=== PATIENT | male | born 1950 | race Caucasian/White ===

== ENCOUNTER 2018-10-22 19:25 | Inpatient (IN) | payer MEDICARE, OTHER ==
[2018-10-22] MEDS ORDERED: Ketorolac 30 MG/ML SDV IVPUSH ONE (19:54)
[2018-10-22] MEDS ORDERED: Lactated Ringers 1,000 ML IV SCH (20:00)
[2018-10-22] MEDS ORDERED: Ondansetron 4 MG/2 ML SDV IVPUSH ONE (20:02)
--- NOTE | 2018-10-22 20:03 | EDM.PDOC ---
ED HPI GENERAL MEDICAL PROBLEM - General Chief Complaint: Genitourinary Problem Stated Complaint: KIDNEY STONE Time Seen by Provider: 10/22/18 19:54 Source of Information: Reports: Patient, Family, RN Notes Reviewed History Limitations: Reports: No Limitations - History of Present Illness INITIAL COMMENTS - FREE TEXT/NARRATIVE: 68-year-old gentleman presents to the emergency department today complaint of right flank pain, he states, on suddenly this morning is very intense and then will relax does have a history of nephrolithiasis 15 years ago, complains of nausea as well right flank Pain Score (Numeric/FACES): 7 - Related Data Allergies Allergy/AdvReac Type Severity Reaction Status Date / Time codeine Allergy Vomiting Verified 10/22/18 19:40 Home Meds: Home Meds Canagliflozin [Invokana] 100 mg PO DAILY 10/22/18 [History] Finasteride 5 mg PO DAILY 10/22/18 [History] Gabapentin [Neurontin] 600 mg PO TID 10/22/18 [History] Insulin Detemir [Levemir] 18 units SQ DAILY 10/22/18 [History] Lisinopril 20 mg PO DAILY 10/22/18 [History] Simvastatin 20 mg PO DAILY 10/22/18 [History] Terazosin HCl [Terazosin] 2 mg PO BEDTIME 10/22/18 [History] metFORMIN HCl [Glucophage] 1,000 mg PO BID 10/22/18 [History] Past Medical History Cardiovascular History: Reports: High Cholesterol, Hypertension Genitourinary History: Reports: Renal Calculus Endocrine/Metabolic History: Reports: Diabetes, Type II - Past Surgical History Musculoskeletal Surgical History: Reports: Amputation, Knee Replacement, Shoulder Surgery Social & Family History - Tobacco Use Smoking Status *Q: Never Smoker - Caffeine Use Caffeine Use: Reports: Tea - Recreational Drug Use Recreational Drug Use: No ED ROS GENERAL - Review of Systems Review Of Systems: See Below Constitutional: Reports: No Symptoms HEENT: Reports: No Symptoms Respiratory: Reports: No Symptoms Cardiovascular: Reports: No Symptoms GI/Abdominal: Reports: Abdominal Pain, Nausea. Denies: Vomiting : Reports: Flank Pain ED EXAM, RENAL/ - Physical Exam Exam: See Below Exam Limited By: No Limitations General Appearance: Alert, Moderate Distress Respiratory/Chest: No Respiratory Distress, Lungs Clear, Normal Breath Sounds, No Accessory Muscle Use, Chest Non-Tender Cardiovascular: Regular Rate, Rhythm, No Murmur GI/Abdominal: Soft, Non-Tender Back Exam: Normal Inspection, Full Range of Motion, CVA Tenderness (R). No: CVA Tenderness (L) Course - Vital Signs Last Recorded V/S: Last Vital Signs Temp 97.2 F 10/22/18 19:44 Pulse 65 10/22/18 19:44 Resp 19 10/22/18 19:44 BP 144/63 H 10/22/18 19:44 Pulse Ox 97 10/22/18 19:44 - Orders/Labs/Meds Orders: Active Orders 24 hr Category Date Time Status Gastric Occult/pH Collection D [RC] ASDIRECTED Care 10/22/18 22:45 Active UA W/MICROSCOPIC [URIN] Urgent Lab 10/22/18 19:54 Ordered Lactated Ringers [Ringers, Lactated] 1,000 ml Med 10/22/18 20:00 Active IV ASDIRECTED Medication Orders Lactated Ringer's (Ringers, Lactated) 1,000 mls @ 999 mls/hr IV ASDIRECTED RICARDO Last Admin: 10/22/18 20:09 Dose: 999 mls/hr Labs: Laboratory Tests 10/22/18 10/22/18 Range/Units 19:59 19:59 WBC 7.0 (4.5-11.0) K/uL RBC 4.56 (4.30-5.90) M/uL Hgb 14.0 (12.0-15.0) g/dL Hct 43.0 (40.0-54.0) % MCV 94 (80-98) fL MCH 31 (27-31) pg MCHC 33 (32-36) % Plt Count 214 (150-400) K/uL Neut % (Auto) 63 (36-66) % Lymph % (Auto) 27 (24-44) % [place] % (Auto) 6 (2-6) % Eos % (Auto) 4 (2-4) % Baso % (Auto) 0 (0-1) % Sodium 142 (140-148) mmol/L Potassium 4.5 (3.6-5.2) mmol/L Chloride 107 (100-108) mmol/L Carbon Dioxide 25 (21-32) mmol/L Anion Gap 10.0 (5.0-14.0) mmol/L BUN 29 H (7-18) mg/dL Creatinine 1.2 (0.8-1.3) mg/dL Est Cr Clr Drug Dosing 57.79 mL/min Estimated GFR (MDRD) > 60 (>60) Glucose 119 H (74-106) mg/dL Calcium 9.1 (8.5-10.1) mg/dL Total Bilirubin 0.3 (0.2-1.0) mg/dL AST 14 L (15-37) U/L ALT 26 (12-78) U/L Alkaline Phosphatase 48 (46-116) U/L Troponin I < 0.017 (0.000-0.056) ng/mL Total Protein 6.6 (6.4-8.2) g/dL Albumin 3.5 (3.4-5.0) g/dL Globulin 3.1 (2.3-3.5) g/dL Albumin/Globulin Ratio 1.1 L (1.2-2.2) Meds: Medications Generic Name Dose Route Start Last Admin Trade Name Thien PRN Reason Stop Dose Admin Lactated Ringer's 1,000 mls @ 999 mls/hr 10/22/18 20:00 10/22/18 20:09 Ringers, Lactated IV 999 mls/hr ASDIRECTED RICARDO Administration Discontinued Medications Generic Name Dose Route Start Last Admin Trade Name Thien PRN Reason Stop Dose Admin Cyclobenzaprine HCl 10 mg 10/22/18 22:42 10/22/18 22:54 Flexeril PO 10/22/18 22:43 10 mg ONETIME ONE Administration Fentanyl 100 mcg 10/22/18 20:23 10/22/18 20:26 Sublimaze IVPUSH 10/22/18 20:24 100 mcg ONETIME ONE Administration Fentanyl 100 mcg 10/22/18 22:07 10/22/18 22:14 Sublimaze IVPUSH 10/22/18 22:08 100 mcg ONETIME ONE Administration Hydromorphone HCl 1 mg 10/22/18 22:36 10/22/18 22:40 Dilaudid IVPUSH 10/22/18 22:37 1 mg ONETIME ONE Administration Ketamine HCl 10 mg 10/22/18 22:08 10/22/18 22:16 Ketalar IV 10/22/18 22:09 10 mg ONETIME ONE Administration Ketorolac Tromethamine 30 mg 10/22/18 19:54 10/22/18 19:58 Toradol IVPUSH 10/22/18 19:55 30 mg ONETIME ONE Administration Ondansetron HCl 4 mg 10/22/18 20:02 10/22/18 20:07 Zofran IVPUSH 10/22/18 20:03 4 mg ONETIME ONE Administration Prochlorperazine Edisylate 5 mg 10/22/18 22:44 10/22/18 22:54 Compazine IVPUSH 10/22/18 22:45 5 mg ONETIME ONE Administration Departure - Departure Time of Disposition: 23:39 ( since ) Disposition: Admitted As Inpatient 67 Condition: Fair Clinical Impression: Right flank pain - Discharge Information Referrals: PCP,None [Primary Care Provider] - Forms: ED Department Discharge - My Orders Last 24 Hours: My Active Orders 10/22/18 19:54 UA W/MICROSCOPIC [URIN] Urgent 10/22/18 20:00 Lactated Ringers [Ringers, Lactated] 1,000 ml IV ASDIRECTED 10/22/18 22:45 Gastric Occult/pH Collection D [RC] ASDIRECTED - Assessment/Plan Last 24 Hours: My Active Orders 10/22/18 19:54 UA W/MICROSCOPIC [URIN] Urgent 10/22/18 20:00 Lactated Ringers [Ringers, Lactated] 1,000 ml IV ASDIRECTED 10/22/18 22:45 Gastric Occult/pH Collection D [RC] ASDIRECTED Plan: Assessment Acuity = acute Site and laterality = right flank pain Etiology = unclear etiology Manifestations = nausea and vomiting Location of injury = Home Lab values = CBC, CMP unremarkable, troponin is negative CT scan of the abdomen shows no acute process gastric emesis was positive for occult blood Plan Discussed case with hospitalist on-call at 2300 recommended admission at that time This note was dictated using [employer] voice recognition software please call with any questions on syntax or grammar.
[2018-10-22] MEDS ORDERED: fentaNYL 100 MCG/2 ML SDV IVPUSH ONE ×2 (20:23→22:07)
--- NOTE | 2018-10-22 22:03 | CRLCT ---
Indication: Right flank pain Technique: Nonenhanced axial CT imaging through the abdomen and pelvis. Sagittal and coronal reconstructions are provided. Comparison: None Findings: The included lung bases are clear. There is unremarkable noncontrast appearance of the liver, spleen, pancreas, or adrenal glands. The gallbladder is surgically absent. There is normal renal parenchymal attenuation. A 2.9 cm cyst is noted in the left kidney. There is no hydronephrosis. No renal stones are demonstrated. The stomach and duodenum are unremarkable. There are no abnormally dilated small bowel loops. The appendix is not visualized. The colon is unremarkable. There is no abdominal lymphadenopathy. No significant inflammatory changes are demonstrated in the mesentery. There is no significant free intraperitoneal fluid. There is no pneumoperitoneum. There is normal caliber of the abdominal aorta. Multilevel degenerative changes are noted in the lumbar spine. Impression: No evidence of nephrolithiasis or urinary obstruction. Please note that all CT scans at this facility use dose modulation, iterative reconstruction, and/or weight-based dosing when appropriate to reduce radiation dose to as low as reasonably achievable. Dictated by Vanessa Lopez MD @ Oct 22 2018 9:55PM Signed by Dr. Vanessa Lopez @ Oct 22 2018 10:02PM
[2018-10-22] MEDS ORDERED: Ketamine 500 MG/5 ML MDV IV ONE (22:08)
[2018-10-22] MEDS ORDERED: HYDROmorphone 0.5 MG/0.5 ML Syringe IVPUSH ONE (22:36)
[2018-10-22] MEDS ORDERED: Cyclobenzaprine 10 MG Tab PO ONE (22:42)
[2018-10-22] MEDS ORDERED: Prochlorperazine 10 MG/2 ML SDV IVPUSH ONE (22:44)
[2018-10-22] MEDS ORDERED: Sodium Chloride 0.9% 10 ML Syringe FLUSH PRN (23:47)
[2018-10-22] MEDS ORDERED: Ondansetron 4 MG/2 ML SDV IVPUSH PRN (23:51)
[2018-10-22] MEDS ORDERED: HYDROmorphone 0.5 MG/0.5 ML Syringe IVPUSH PRN (23:51)
--- NOTE | 2018-10-22 23:57 | PCM.HP ---
H&P History of Present Illness - General Date of Service: 10/22/18 Admit Problem/Dx: Admission Diagnosis/Problem Admission Diagnosis/Problem Flank pain Source of Information: Patient History Limitations: Reports: No Limitations - History of Present Illness Initial Comments - Free Text/Narative: Please see ER note for details right flank Pain Score (Numeric/FACES): 7 - Related Data Allergies/Adverse Reactions: Allergies Allergy/AdvReac Type Severity Reaction Status Date / Time codeine Allergy Vomiting Verified 10/22/18 19:40 Home Medications: Home Meds Canagliflozin [Invokana] 100 mg PO DAILY 10/22/18 [History] Finasteride 5 mg PO DAILY 10/22/18 [History] Gabapentin [Neurontin] 600 mg PO TID 10/22/18 [History] Insulin Detemir [Levemir] 18 units SQ DAILY 10/22/18 [History] Lisinopril 20 mg PO DAILY 10/22/18 [History] Simvastatin 20 mg PO DAILY 10/22/18 [History] Terazosin HCl [Terazosin] 2 mg PO BEDTIME 10/22/18 [History] metFORMIN HCl [Glucophage] 1,000 mg PO BID 10/22/18 [History] Past Medical History Cardiovascular History: Reports: High Cholesterol, Hypertension Genitourinary History: Reports: Renal Calculus Endocrine/Metabolic History: Reports: Diabetes, Type II - Past Surgical History Musculoskeletal Surgical History: Reports: Amputation, Knee Replacement, Shoulder Surgery Social & Family History - Tobacco Use Smoking Status *Q: Never Smoker - Caffeine Use Caffeine Use: Reports: Tea - Recreational Drug Use Recreational Drug Use: No H&P Review of Systems - Review of Systems: Review Of Systems: See Below Free Text/Narrative: Please see ER note for review of systems Exam - Exam Exam: See Below - Vital Signs Vital Signs: Last Vital Signs Temp 97.2 F 10/22/18 19:44 Pulse 65 10/22/18 19:44 Resp 19 10/22/18 19:44 BP 144/63 H 10/22/18 19:44 Pulse Ox 97 10/22/18 19:44 Weight: 102.5 kg - Exam Physical Exam Comments:: Please see ER note for physical exam - Patient Data Lab Results Last 24 hrs: Laboratory Results - last 24 hr 10/22/18 10/22/18 Range/Units 19:59 19:59 WBC 7.0 (4.5-11.0) K/uL RBC 4.56 (4.30-5.90) M/uL Hgb 14.0 (12.0-15.0) g/dL Hct 43.0 (40.0-54.0) % MCV 94 (80-98) fL MCH 31 (27-31) pg MCHC 33 (32-36) % Plt Count 214 (150-400) K/uL Neut % (Auto) 63 (36-66) % Lymph % (Auto) 27 (24-44) % [place] % (Auto) 6 (2-6) % Eos % (Auto) 4 (2-4) % Baso % (Auto) 0 (0-1) % Sodium 142 (140-148) mmol/L Potassium 4.5 (3.6-5.2) mmol/L Chloride 107 (100-108) mmol/L Carbon Dioxide 25 (21-32) mmol/L Anion Gap 10.0 (5.0-14.0) mmol/L BUN 29 H (7-18) mg/dL Creatinine 1.2 (0.8-1.3) mg/dL Est Cr Clr Drug Dosing 57.79 mL/min Estimated GFR (MDRD) > 60 (>60) Glucose 119 H (74-106) mg/dL Calcium 9.1 (8.5-10.1) mg/dL Total Bilirubin 0.3 (0.2-1.0) mg/dL AST 14 L (15-37) U/L ALT 26 (12-78) U/L Alkaline Phosphatase 48 (46-116) U/L Troponin I < 0.017 (0.000-0.056) ng/mL Total Protein 6.6 (6.4-8.2) g/dL Albumin 3.5 (3.4-5.0) g/dL Globulin 3.1 (2.3-3.5) g/dL Albumin/Globulin Ratio 1.1 L (1.2-2.2) Result Diagrams: 10/22/18 19:59 10/22/18 19:59 Kofi Results Last 24 hrs: Microbiology 10/22/18 23:24 Gastric Occult Blood - Final Gastric Aspirate - Problem List (1) Right flank pain SNOMED Code(s): 566546446 ICD Code: R10.9 - UNSPECIFIED ABDOMINAL PAIN Status: Acute Priority: High Current Visit: Yes (2) Diabetes mellitus type 2, insulin dependent SNOMED Code(s): 659209619 ICD Code: E11.9 - TYPE 2 DIABETES MELLITUS WITHOUT COMPLICATIONS; Z79.4 - COST SPECIALIST (CURRENT) USE OF INSULIN Status: Acute Current Visit: Yes (3) Hypertension SNOMED Code(s): 37886384 ICD Code: I10 - ESSENTIAL (PRIMARY) HYPERTENSION Status: Acute Current Visit: Yes Qualifiers: Hypertension type: essential hypertension Qualified Code(s): I10 - Essential (primary) hypertension (4) Upper GI bleed SNOMED Code(s): 57995984 ICD Code: K92.2 - GASTROINTESTINAL HEMORRHAGE, UNSPECIFIED Status: Acute Priority: High Current Visit: Yes (5) Dyslipidemia SNOMED Code(s): 758470016 ICD Code: E78.5 - HYPERLIPIDEMIA, UNSPECIFIED Status: Acute Priority: Low Current Visit: Yes Problem List Initiated/Reviewed/Updated: Yes Orders Last 24hrs: Active Orders 24 hr Category Date Time Status Patient Status [ADT] Routine ADT 10/22/18 23:47 Ordered Gastric Occult/pH Collection D [RC] ASDIRECTED Care 10/22/18 22:45 Active Height and Weight [RC] DAILY Care 10/22/18 23:47 Ordered Intake and Output [RC] QSHIFT Care 10/22/18 23:48 Ordered Oxygen Therapy [RC] PRN Care 10/22/18 23:47 Ordered Peripheral IV Care [RC] . DIRECTED Care 10/22/18 23:49 Ordered Pulse Oximetry [RC] CONTINUOUS Care 10/22/18 23:48 Ordered Up With Assistance [RC] ASDIRECTED Care 10/22/18 23:47 Ordered VTE/DVT Education [RC] Per Unit Routine Care 10/22/18 23:47 Ordered Vital Signs [RC] Q4H Care 10/22/18 23:47 Ordered Nothing per Oral Now Diet [DIET] Diet 10/22/18 Breakfast Ordered CBC WITH AUTO DIFF [HEME] AM Lab 10/23/18 05:11 Ordered COMPREHENSIVE METABOLIC PN,CMP [CHEM] AM Lab 10/23/18 05:11 Ordered UA W/MICROSCOPIC [URIN] Urgent Lab 10/22/18 19:54 Ordered Canagliflozin [Invokana] Med 10/23/18 09:00 Ordered 100 mg PO DAILY Finasteride [Proscar] Med 10/23/18 09:00 Ordered 5 mg PO DAILY Gabapentin [Neurontin] Med 10/23/18 09:00 Ordered 600 mg PO TID HYDROmorphone [Dilaudid] Med 10/22/18 23:51 Ordered 0.5 mg IVPUSH Q4H PRN Insulin Detemir [Levemir] Med 10/23/18 09:00 Ordered 18 units SQ DAILY Lactated Ringers [Ringers, Lactated] 1,000 ml Med 10/22/18 20:00 Active IV ASDIRECTED Lisinopril [Prinivil] Med 10/23/18 09:00 Ordered 20 mg PO DAILY Ondansetron [Zofran] Med 10/22/18 23:51 Ordered 4 mg IVPUSH Q8H PRN Pantoprazole [ProTONIX IV] Med 10/22/18 23:45 Ordered 40 mg IV Q12H Simvastatin [Zocor] Med 10/23/18 09:00 Ordered 20 mg PO DAILY Sodium Chloride 0.9% @ 125 MLS/HR (1000ml) Med 10/22/18 23:45 Ordered Sodium Chloride 0.9% [Normal Saline] 1,000 ml IV ASDIRECTED Sodium Chloride 0.9% [Saline Flush] Med 10/22/18 23:47 Ordered 10 ml FLUSH ASDIRECTED PRN Terazosin HCl [Terazosin] Med 10/23/18 21:00 Ordered 2 mg PO BEDTIME metFORMIN HCl [Glucophage] Med 10/23/18 09:00 Ordered 1,000 mg PO BID Nasogastric Orogastric Tube Insertion [OM.PC] Urgent Oth 10/22/18 23:48 Ordered Peripheral IV Insertion Adult [OM.PC] Routine Oth 10/22/18 23:47 Ordered Resuscitation Status Routine Resus Stat 10/22/18 23:47 Ordered Medication Orders Finasteride (Proscar) 5 mg PO DAILY RICARDO Gabapentin (Neurontin) 600 mg PO TID RICARDO Hydromorphone HCl (Dilaudid) 0.5 mg IVPUSH Q4H PRN PRN Reason: Pain Lactated Ringer's (Ringers, Lactated) 1,000 mls @ 999 mls/hr IV ASDIRECTED RICARDO Last Admin: 10/22/18 20:09 Dose: 999 mls/hr Sodium Chloride (Normal Saline) 1,000 mls @ 125 mls/hr IV ASDIRECTED [facility] Lisinopril (Prinivil) 20 mg PO DAILY RICARDO Non-Formulary Medication (Canagliflozin [Invokana]) 100 mg PO DAILY RICARDO Non-Formulary Medication (Insulin Detemir [Levemir]) 18 units SQ DAILY RICARDO Non-Formulary Medication (Metformin Hcl [Glucophage]) 1,000 mg PO BID RICARDO Non-Formulary Medication (Terazosin Hcl [Terazosin]) 2 mg PO BEDTIME RICARDO Ondansetron HCl (Zofran) 4 mg IVPUSH Q8H PRN PRN Reason: Nausea/Vomiting Pantoprazole Sodium (Protonix Iv) 40 mg IV Q12H RICARDO Simvastatin (Zocor) 20 mg PO DAILY RICARDO Sodium Chloride (Saline Flush) 10 ml FLUSH ASDIRECTED PRN PRN Reason: Keep Vein Open Assessment/Plan Comment:: ASSESSMENT AND PLAN Right flank pain, unclear etiology at this time continue pain control fluids anti-medics Positive gastric contents from emesis concern for upper GI bleed, nothing by mouth consult surgery in the morning discussed possibility of EGD Diabetes mellitus type 2, continue home medications of insulin and metformin Hypertension Dyslipidemia MAINTENANCE ISSUES -DVT prophylaxis; none at this time because of the GI bleed -GI prophylaxis; started on Protonix 40 mg twice a day -Flores catheter; not indicated at this time -Nutrition; nothing by mouth until EGD -Nicotine dependence; has not required CODE STATUS-FULL CODE ADMISSION STATUS-patient will be admitted to inpatient status, expect at least a 2 night hospital stay for evaluation and management of problems as outlined above. At the time of this admission I do not reasonably expected evaluation and management of this problem will require more than a 96 hour hospital stay. DISPOSITION - anticipate discharge to home after the hospital stay. PRIMARY CARE PROVIDER - unknown from [place]
[2018-10-23] MEDS ORDERED: Pantoprazole 40 MG Vial IV SCH
[2018-10-23] MEDS: Sodium Chloride 0.9% 1,000 ML IV SCH ×2 (00:18→08:18)
[2018-10-23] MEDS ORDERED: metFORMIN 500 MG Tab PO SCH (08:00)
[2018-10-23] MEDS ORDERED: Simvastatin 20 MG Tab PO SCH (09:00)
[2018-10-23] MEDS ORDERED: Finasteride 5 MG Tab PO SCH (09:00)
[2018-10-23] MEDS ORDERED: Lisinopril 20 MG Tab PO SCH (09:00)
[2018-10-23] MEDS ORDERED: Gabapentin 300 MG Cap PO SCH (09:00)
[2018-10-23] MEDS ORDERED: Insulin Glargine,Human Rec. Analog 100 Units/ML 3 ML Pen SUBCUT SCH (09:00)
[2018-10-23] MEDS ORDERED: EPINEPHrine 1 MG/ML SDV ONE (09:47)
[2018-10-23] MEDS ORDERED: Midazolam 1 MG/ML 2 ML SDV ONE (09:58)
[2018-10-23] MEDS ORDERED: Propofol 200 MG/20 ML SDV ONE (09:58)
[2018-10-23] MEDS ORDERED: fentaNYL 100 MCG/2 ML SDV ONE (09:58)
--- NOTE | 2018-10-23 11:43 | PCM.DCSUM1 ---
Discharge Summary - Hospital Course Brief History: 68-year-old male with history of insulin-dependent diabetes mellitus, previous nephrolithiasis who presented with acute right lower back pain. he had an episode of hematemesis in the emergency room as well.He was admitted for observation and pain control as well as expedited workup of hematemesis. Diagnosis: Stroke: No - Discharge Data Discharge Date: 10/23/18 Discharge Disposition: Home, Self-Care 01 Condition: Good - Discharge Diagnosis/Problem(s) (1) Acute low back pain SNOMED Code(s): 921959555 ICD Code: M54.5 - LOW BACK PAIN Status: Acute Current Visit: Yes Qualifiers: Back pain laterality: right Sciatica presence: without sciatica Qualified Code(s): M54.5 - Low back pain (2) Hematemesis SNOMED Code(s): 9489488 ICD Code: K92.0 - HEMATEMESIS Status: Acute Current Visit: Yes Qualifiers: Nausea presence: with nausea Qualified Code(s): K92.0 - Hematemesis (3) Diabetes mellitus type 2, insulin dependent SNOMED Code(s): 224492252 ICD Code: E11.9 - TYPE 2 DIABETES MELLITUS WITHOUT COMPLICATIONS; Z79.4 - FILLING LAYER UP (CURRENT) USE OF INSULIN Status: Chronic Current Visit: Yes - Patient Summary/Data Hospital Course: Bill presented to the emergency room with acute right lower back pain. There is no preceding injury. Laboratory studies were unremarkable. CT scan of the abdomen and pelvis was unremarkable for cause of his severe pain. He required multiple doses of narcotic pain medications as well as a muscle relaxer. While he was in the emergency room he had an episode of hematemesis. He was admitted to the hospital for observation, pain control and expedited workup of the hematemesis. Overnight following admission there were no acute issues. His pain was well-controlled and he did not require any as needed medications following hospital admission. An NG tube was placed in the emergency room after his episode of hematemesis but he did not have further episodes overnight. Minimal drainage from the stomach was obtained overnight. The morning after admission he feels well with very mild residual pain in the right lower back. No physical limitations are present. With the episode of hematemesis we did complete an EGD which showed very mild antral gastritis but no evidence for bleeding and no retained blood. Patient feels well at this time and would like to go home. I do believe he is safe for outpatient management. He does have a prescription for muscle relaxers that he will fill if he has difficulty with his back. He will follow-up if symptoms do not continue to get better or if they get worse. - Patient Instructions Diet: Regular Diet as Tolerated Activity: As Tolerated, No Strenuous Activities Showering/Bathing: May Shower Notify Provider of: Increased Pain, Nausea and/or Vomiting - Discharge Plan *PRESCRIPTION DRUG MONITORING PROGRAM REVIEWED*: Not Applicable *COPY OF PRESCRIPTION DRUG MONITORING REPORT IN PATIENT UBALDO: Not Applicable Home Medications: Home Meds Canagliflozin [Invokana] 100 mg PO DAILY 10/22/18 [History] Finasteride 5 mg PO DAILY 10/22/18 [History] Gabapentin [Neurontin] 600 mg PO TID 10/22/18 [History] Insulin Detemir [Levemir] 18 units SQ DAILY 10/22/18 [History] Lisinopril 20 mg PO DAILY 10/22/18 [History] Simvastatin 20 mg PO DAILY 10/22/18 [History] Terazosin HCl [Terazosin] 2 mg PO BEDTIME 10/22/18 [History] metFORMIN HCl [Glucophage] 1,000 mg PO BID 10/22/18 [History] Oxygen Therapy Mode: Room Air Patient Handouts: Acute Back Pain, Adult Referrals: PCP,None [Primary Care Provider] - (f/u if symptoms do not continue to get better ) - Discharge Summary/Plan Comment DC Time >30 min.: No - Patient Data Vitals - Most Recent: Last Vital Signs Temp 35.9 C 10/23/18 10:40 Pulse 55 L 10/23/18 10:45 Resp 16 10/23/18 10:45 BP 104/63 10/23/18 10:45 Pulse Ox 99 10/23/18 10:45 Weight - Most Recent: 102.058 kg I&O - Last 24 hours: Intake & Output 10/22/18 10/23/18 10/23/18 22:59 06:59 14:59 Intake Total 634 Output Total 1200 Balance -566 Lab Results - Last 24 hrs: Laboratory Results - last 24 hr 10/22/18 10/22/18 10/23/18 Range/Units 19:59 19:59 00:08 WBC 7.0 (4.5-11.0) K/uL RBC 4.56 (4.30-5.90) M/uL Hgb 14.0 (12.0-15.0) g/dL Hct 43.0 (40.0-54.0) % MCV 94 (80-98) fL MCH 31 (27-31) pg MCHC 33 (32-36) % Plt Count 214 (150-400) K/uL Neut % (Auto) 63 (36-66) % Lymph % (Auto) 27 (24-44) % Powell % (Auto) 6 (2-6) % Eos % (Auto) 4 (2-4) % Baso % (Auto) 0 (0-1) % Sodium 142 (140-148) mmol/L Potassium 4.5 (3.6-5.2) mmol/L Chloride 107 (100-108) mmol/L Carbon Dioxide 25 (21-32) mmol/L Anion Gap 10.0 (5.0-14.0) mmol/L BUN 29 H (7-18) mg/dL Creatinine 1.2 (0.8-1.3) mg/dL Est Cr Clr Drug Dosing 57.79 mL/min Estimated GFR (MDRD) > 60 (>60) Glucose 119 H (74-106) mg/dL Calcium 9.1 (8.5-10.1) mg/dL Total Bilirubin 0.3 (0.2-1.0) mg/dL AST 14 L (15-37) U/L ALT 26 (12-78) U/L Alkaline Phosphatase 48 (46-116) U/L Troponin I < 0.017 (0.000-0.056) ng/mL Total Protein 6.6 (6.4-8.2) g/dL Albumin 3.5 (3.4-5.0) g/dL Globulin 3.1 (2.3-3.5) g/dL Albumin/Globulin Ratio 1.1 L (1.2-2.2) Urine Color Yellow Urine Appearance Clear Urine pH 5.0 (4.5-8.0) Ur Specific Vernon 1.020 (1.008-1.030) Urine Protein Negative (NEGATIVE) mg/dL Urine Glucose (UA) >1000 H (NEGATIVE) mg/dL Urine Ketones Negative (NEGATIVE) mg/dL Urine Occult Blood Negative (NEGATIVE) Urine Nitrite Negative (NEGAITVE) Urine Bilirubin Negative (NEGATIVE) Urine Urobilinogen Normal (NORMAL) mg/dL Ur Leukocyte Esterase Negative (NEGATIVE) Urine RBC 0-5 (0-5) Urine WBC 0-5 (0-5) Ur Epithelial Cells Rare Amorphous Sediment Not seen Urine Bacteria Rare Urine Mucus Not seen 10/23/18 10/23/18 10/23/18 Range/Units 03:00 04:40 04:40 WBC 7.5 (4.5-11.0) K/uL RBC 4.21 L (4.30-5.90) M/uL Hgb 13.2 12.9 (12.0-15.0) g/dL Hct 40.1 (40.0-54.0) % MCV 95 (80-98) fL MCH 31 (27-31) pg MCHC 32 (32-36) % Plt Count 190 (150-400) K/uL Neut % (Auto) 79 H (36-66) % Lymph % (Auto) 15 L (24-44) % Powell % (Auto) 5 (2-6) % Eos % (Auto) 0 L (2-4) % Baso % (Auto) 0 (0-1) % Sodium 142 (140-148) mmol/L Potassium 4.9 (3.6-5.2) mmol/L Chloride 108 (100-108) mmol/L Carbon Dioxide 28 (21-32) mmol/L Anion Gap 6.4 (5.0-14.0) mmol/L BUN 30 H (7-18) mg/dL Creatinine 1.2 (0.8-1.3) mg/dL Est Cr Clr Drug Dosing TNP mL/min Estimated GFR (MDRD) > 60 (>60) Glucose 123 H (74-106) mg/dL Calcium 8.2 L (8.5-10.1) mg/dL Total Bilirubin 0.3 (0.2-1.0) mg/dL AST 20 (15-37) U/L ALT 32 (12-78) U/L Alkaline Phosphatase 41 L (46-116) U/L Troponin I (0.000-0.056) ng/mL Total Protein 6.0 L (6.4-8.2) g/dL Albumin 3.1 L (3.4-5.0) g/dL Globulin 2.9 (2.3-3.5) g/dL Albumin/Globulin Ratio 1.1 L (1.2-2.2) Urine Color Urine Appearance Urine pH (4.5-8.0) Ur Specific Vernon (1.008-1.030) Urine Protein (NEGATIVE) mg/dL Urine Glucose (UA) (NEGATIVE) mg/dL Urine Ketones (NEGATIVE) mg/dL Urine Occult Blood (NEGATIVE) Urine Nitrite (NEGAITVE) Urine Bilirubin (NEGATIVE) Urine Urobilinogen (NORMAL) mg/dL Ur Leukocyte Esterase (NEGATIVE) Urine RBC (0-5) Urine WBC (0-5) Ur Epithelial Cells Amorphous Sediment Urine Bacteria Urine Mucus BRADLY Results - Last 24 hrs: Microbiology 10/22/18 23:24 Gastric Occult Blood - Final Gastric Aspirate Med Orders - Current: Current Medications Finasteride (Proscar) 5 mg PO DAILY [facility] Gabapentin (Neurontin) 600 mg PO TID [facility] Hydromorphone HCl (Dilaudid) 0.5 mg IVPUSH Q4H PRN PRN Reason: Pain Lactated Ringer's (Ringers, Lactated) 1,000 mls @ 999 mls/hr IV ASDIRECTED [facility] Last Admin: 10/22/18 20:09 Dose: 999 mls/hr Sodium Chloride (Normal Saline) 1,000 mls @ 125 mls/hr IV ASDIRECTED [facility] Last Admin: 10/23/18 08:18 Dose: 125 mls/hr Insulin Glargine (Lantus Solostar) 18 units SUBCUT DAILY [facility] Lisinopril (Prinivil) 20 mg PO DAILY [facility] Metformin HCl (Glucophage) 1,000 mg PO BIDMEALS [facility] (Canagliflozin [ Invokana] 100 Mg)* Pom* 100 mg PO DAILY@0800 [facility] Ondansetron HCl (Zofran) 4 mg IVPUSH Q8H PRN PRN Reason: Nausea/Vomiting Pantoprazole Sodium (Protonix Iv) 40 mg IV Q12H [facility] Last Admin: 10/23/18 00:21 Dose: 40 mg Simvastatin (Zocor) 20 mg PO DAILY [facility] Sodium Chloride (Saline Flush) 10 ml FLUSH ASDIRECTED PRN PRN Reason: Keep Vein Open Terazosin HCl (Hytrin) 2 mg PO BEDTIME [facility] Discontinued Medications Cyclobenzaprine HCl (Flexeril) 10 mg PO ONETIME ONE Stop: 10/22/18 22:43 Last Admin: 10/22/18 22:54 Dose: 10 mg Epinephrine HCl (Adrenalin) Confirm Administered Dose 1 mg .ROUTE .STK-MED ONE Stop: 10/23/18 09:48 Fentanyl (Sublimaze) 100 mcg IVPUSH ONETIME ONE Stop: 10/22/18 20:24 Last Admin: 10/22/18 20:26 Dose: 100 mcg Fentanyl (Sublimaze) 100 mcg IVPUSH ONETIME ONE Stop: 10/22/18 22:08 Last Admin: 10/22/18 22:14 Dose: 100 mcg Fentanyl (Sublimaze) Confirm Administered Dose 100 mcg .ROUTE .STK-MED ONE Stop: 10/23/18 09:59 Hydromorphone HCl (Dilaudid) 1 mg IVPUSH ONETIME ONE Stop: 10/22/18 22:37 Last Admin: 10/22/18 22:40 Dose: 1 mg Ketamine HCl (Ketalar) 10 mg IV ONETIME ONE Stop: 10/22/18 22:09 Last Admin: 10/22/18 22:16 Dose: 10 mg Ketorolac Tromethamine (Toradol) 30 mg IVPUSH ONETIME ONE Stop: 10/22/18 19:55 Last Admin: 10/22/18 19:58 Dose: 30 mg Midazolam HCl (Versed 1 Mg/Ml) Confirm Administered Dose 2 mg .ROUTE .STK-MED ONE Stop: 10/23/18 09:59 Ondansetron HCl (Zofran) 4 mg IVPUSH ONETIME ONE Stop: 10/22/18 20:03 Last Admin: 10/22/18 20:07 Dose: 4 mg Prochlorperazine Edisylate (Compazine) 5 mg IVPUSH ONETIME ONE Stop: 10/22/18 22:45 Last Admin: 10/22/18 22:54 Dose: 5 mg Propofol (Diprivan 20 Ml) Confirm Administered Dose 200 mg .ROUTE .STK-MED ONE Stop: 10/23/18 09:59 - Exam Quality Assessment: Denies: Supplemental Oxygen General: Reports: Alert, Oriented, Cooperative, No Acute Distress Lungs: Reports: Normal Respiratory Effort GI/Abdominal Exam: Soft, No Distention Back Exam: Reports: Normal Inspection, Full Range of Motion, Muscle Spasm (mild right lower back). Denies: Paraspinal Tenderness, Vertebral Tenderness Extremities: No Pedal Edema Psy/Mental Status: Reports: Alert, Normal Affect
[2018-10-23] MEDS ORDERED: Terazosin 1 MG Cap PO SCH (21:00)
--- NOTE | 2018-10-25 09:21 | OR ---
DATE OF PROCEDURE: 10/23/2018 PREOPERATIVE DIAGNOSIS: Hematemesis. POSTOPERATIVE DIAGNOSES: 1. Hematemesis, resolved. 2. Mild antral gastritis. PROCEDURE: Esophagogastroduodenoscopy with antral biopsies for CLOtest and for pathology to look for Helicobacter pylori. SURGEON: Alfonso Davila MD. ANESTHESIA: IV anesthesia with monitored anesthesia care. INDICATION: This 68-year-old white male presented to the emergency room last night with back pain. While here, he experienced some hematemesis. He was admitted to the ICU. A request was made for upper endoscopy. He does take an 81 mg per day aspirin. No other anticoagulants. I counseled him for the upper endoscopy with possible biopsy including risks and alternatives, and he gave his informed consent to proceed. DESCRIPTION OF PROCEDURE: The patient was placed in the left lateral decubitus position. IV anesthesia was administered by the Anesthesia Service. Time-out was held. The flexible video Olympus upper endoscope was passed through his mouth, down the esophagus, into his stomach. The scope was easily passed through the pylorus into the duodenum reaching its third portion. The scope was then slowly withdrawn examining the mucosa throughout. The duodenal mucosa appeared unremarkable. The scope was brought up through the pylorus into the antrum. There were blotchy areas of erythema consistent with mild antral gastritis. There was no old nor new blood anywhere in the upper gastrointestinal tract. We did obtain antral biopsies for CLOtest and for pathology to look for Helicobacter pylori. The scope was retroflexed. The proximal stomach appeared unremarkable. The scope was straightened and brought up through the GE junction. This was unremarkable. The scope was brought up through the unremarkable appearing esophagus and was removed. He tolerated the procedure well. Alfonso Davila MD /[id number] [email or web address]
== END 2018-10-23 11:59 | disposition home or self-care (01) | DRG 552 ==
LOC: JP.ED 19:25 → JP.ICU 23:47
PROVIDERS: ADMIT Internal Medicine; ATTEND Internal Medicine
PROC: 0DB78ZX Excision of Stomach, Pylorus, Via Natural or Artificial Opening Endoscopic, Diagnostic (ICD-10-PCS; principal; 2018-10-23)
DX: M54.5 Low back pain (principal); K92.0 Hematemesis; K29.70 Gastritis, unspecified, without bleeding; E11.9 Type 2 diabetes mellitus without complications; Z79.4 Long term (current) use of insulin; I10 Essential (primary) hypertension; Z87.442 Personal history of urinary calculi; E78.5 Hyperlipidemia, unspecified; Z79.82 Long term (current) use of aspirin; Z88.5 Allergy status to narcotic agent; Z96.659 Presence of unspecified artificial knee joint
CPT/HCPCS: 36415; 74176; 80053; 82271; 84484; 85025; 96361; 96374; 96375; 96376; 99284; A9270; J0780; J1170; J1885; J2405; J3010 ×2; J7120; 81001; 85018; 87081; 88305; 99285; C9113; J0171; J1815-GY; J2250; J2704; J7030